=== PATIENT | female | born 1945 | race Caucasian/White ===

== ENCOUNTER → 2018-01-04 | Outpatient (CLI) | payer BC ==
[~2018-01-04] MED LIST: ACET-24 PO; ASPI-461 PO; IBUP-1050 PO; LEVO200T6 PO; REGADENOSON 0.4 MG/5 ML SYR ONE; ULT50X PO; VITAMIN D PO
--- NOTE | 2018-01-04 13:48 | MYOCARDIAL PERFUSION SCAN ---
ONE-DAY NUCLEAR MEDICINE TECHNETIUM-99M CARDIOLITE MYOCARDIAL PERFUSION SCAN CLINICAL HISTORY: This stress test is being performed as a preoperative evaluation. The patient has a known left bundle-branch block. COMPARISON: None. TECHNIQUE: For the stress portion of the study, 31.3 mCi of Technetium 99 m Cardiolite IV was injected at 09:25 am on 01/04/2018. Thirty minutes following the injection, imaging of the heart was performed in multiple projection. For the rest portion of the study, 9.91 mCi of Technetium 99 m Cardiolite was injected IV at 07:30 am. One hour following the injection, imaging of the heart was performed in the same projections. For the stress portion of the study, 0.4 mg of Lexiscan was injected intravenously as per protocol. The patient did not experience chest discomfort. Baseline EKG noted sinus rhythm with a complete left bundle-branch block. There are no ST segment changes seen over the baseline abnormality with the infusion. Following the study, patient was hemodynamically stable without complaints. FINDINGS: The short axis, vertical long axis, horizontal long axis images were reviewed in detail. There is a small fixed defect involving the apex at both stress and rest. However, the rotating and gated images suggest that this represents breast attenuation rather than prior infarction. There is no evidence of stress-induced myocardial ischemia. Left ventricle demonstrates normal systolic function without wall motion abnormalities. An estimated left ventricular ejection fraction is 58%. CONCLUSIONS: 1. No definite scintigraphic evidence of a prior myocardial infarction or stress induced myocardial ischemia. 2. No Lexiscan induced chest pain. 3. No Lexiscan induced EKG changes over the baseline abnormality. 4. Normal left ventricular ejection fraction of 58% without wall motion abnormalities.
== END | disposition home or self-care (01) ==
LOC: C.NUCL 07:01
PROVIDERS: ATTEND Physician Assistant
DX: I44.7 Left bundle-branch block, unspecified (principal); Z01.810 Encounter for preprocedural cardiovascular examination

== ENCOUNTER 2018-01-08 06:26 | Inpatient (IN) | payer BC, OTHER ==
[2017-12-13 13:07] VITALS: BMI 35.0
--- NOTE | 2017-12-24 14:43 | PAT Medication Instructions ---
Service Date Dec 24, 2017. Current Home Medication List Ibuprofen (Advil), 600 MG PO PRN Levothyroxine Sodium (Levothyroxine Sodium), 1 TAB PO QAM [Vitamin D], 400 UNITS PO QAM Medication Instructions For Your Scheduled Surgery -Check with your surgeon: Ibuprofen (Advil), 600 MG PO PRN - Hold the following medications the morning of surgery: [Vitamin D], 400 UNITS PO QAM - Take the following medications the morning of surgery with a sip of water: Levothyroxine Sodium (Levothyroxine Sodium), 1 TAB PO QAM If you have any questions please call us at [phone] or [phone] or [phone]
--- NOTE | 2018-01-04 19:45 | HISTORY & PHYSICAL EXAMINATION ---
DATE OF ADMISSION: 01/08/2018 CHIEF COMPLAINT: Left knee pain. HISTORY OF PRESENT ILLNESS: A 72-year-old female referred by my partner, Dr. Mai for surgical treatment of her left knee. She has a several year history of bilateral knee pain and discomfort, left side greater than the right. She has been treated with injections, which provide about two weeks of relief and that is about it. Pain has become more debilitating. It is mostly on the medial side, but some global pain. The more she walks, the more it hurts. She would like to have her left knee replaced. PAST MEDICAL HISTORY: Hypothyroidism. PAST SURGICAL HISTORY: Hernia surgery. ALLERGIES: None. CURRENT MEDICATIONS: Synthroid. SOCIAL HISTORY: This is a 72-year-old female. She is single, but has a lot of family help around. She does not smoke. She is . No tobacco use. No alcohol use. FAMILY HISTORY: Noncontributory. REVIEW OF SYSTEMS: Negative for diabetes, neurologic problems, vascular problems or bleeding disorders. Denies any chest pain. No shortness of breath. No history of DVT or PE. PHYSICAL EXAMINATION: GENERAL: Reveals a healthy, pleasant elderly female. Looks to be in good health. HEENT: Benign. NECK: Supple. No lymphadenopathy. LUNGS: Clear to auscultation. HEART: Regular rate and rhythm. ABDOMEN: Soft, nontender, nondistended. EXTREMITIES: Grossly neurovascularly intact except as follows: Examination of the left knee reveals the patient ambulates independently. She has got slight varus alignment to her knee. She has got bony hypertrophy medially. She is tender over the medial joint line. Range of motion is 5-125. There is no instability. She is neurovascularly intact. X-RAYS: X-ray of left knee reviewed. Shows advanced left knee DJD. She has complete loss of her medial joint space. She has little bit tibial femoral subluxation. She has got osteophytes in the lateral compartment as well. ASSESSMENT: A 72-year-old white female with advanced left knee degenerative joint disease unresponsive to conservative treatment. She would like to have her left knee replaced. PLAN: We will take her to the operating room and do a left total knee replacement. The risks and benefits of this procedure were explained to the patient including but not limited to DVT, PE, , infection, neurological injury, vascular injury, bleeding problem, pain, limited range of motion, stiffness, failure to relieve symptoms, incomplete relief of symptoms, need for further surgery in future, fracture, leg length inequality, nerve palsy, etc. The patient understands and desires to proceed. Informed consent was obtained. She is hoping to be discharged to home and do outpatient therapy. She apparently has a lot of family around to help her. She does not want home health. She knows to hold her Mobic 10 days preop.
[~2018-01-08] VITALS: Ht 170.2 cm; Wt 122.0 kg
[2018-01-08] VITALS (9 sets, daily range): BP systolic 120–188; BP diastolic 68–88; PULSE 62–83; TEMP 36.4–36.9; O2SAT 94–100; Ht 170.2 cm; Wt 122.0 kg
[~2018-01-08 06:26] MED LIST changes: -ACET-24 PO; +ACETAMINOPHEN 500 MG TAB PO SCH; -ASPI-461 PO; +BUPIVACAINE LIPOSOME 266 MG, BUPIVACAINE/EPINEPHRINE INJ 50 ML, SODIUM CHLORIDE 0.9% PF... INFIL SCH; +CEFAZOLIN 2000MG IV PUSH 15 ML IV SCH; +FAMOTIDINE 20 MG TAB PO SCH; +GABAPENTIN 300 MG CAP PO SCH; +LACTATED RINGER'S 1000ML 1,000 ML IV SCH; +LACTATED RINGER'S 1000ML 500 ML IV SCH; +LACTATED RINGER'S 1000ML IV SCH; +METOCLOPRAMIDE HCL 10 MG TAB PO SCH; +PNEUMOCOCCAL ADMINISTRATION CHARGE ONE; +PNEUMOCOCCAL POLYSACCHARIDES 25 MCG/0.5 ML VIAL/SYR IM. ONE; -REGADENOSON 0.4 MG/5 ML SYR ONE; -ULT50X PO
--- NOTE | 2018-01-08 06:54 | History & Physical Bridge Note ---
H&P Re-Evaluation Bridge Note: I have examined the patient, reviewed the History & Physical and in the interval since the performance of the History & Physical I have noted the following changes of clinical significance: No changes noted
[2018-01-08] MEDS ORDERED: EpINEphrine INJ 1MG/ML AMP 1 MG/ML AMP ONE (07:23)
[2018-01-08] MEDS ORDERED: BUPIVACAINE 0.5 % 5 MG/1 ML PF 10ML VIAL ONE (07:23)
[2018-01-08] MEDS ORDERED: ROPIVACAINE 0.5% 5 MG/ML 30 ML VIAL ONE (07:23)
[2018-01-08] MEDS ORDERED: FENTANYL CITRATE INJ 50 MCG/1 ML 2 ML VIAL ONE (07:46)
[2018-01-08] MEDS ORDERED: MIDAZOLAM HCL 1 MG/ML 2ML VIAL ONE (07:47)
[2018-01-08] MEDS ORDERED: CEFAZOLIN SOD 1000MG/7.5 ML IV PUSH ONE (07:53)
[2018-01-08] MEDS ORDERED: ATROPINE SULFATE 0.1 MG/ML 5ML SYR IV PRN (08:00)
[2018-01-08] MEDS ORDERED: HYDROmorphone INJ 0.5 MG/0.5 ML SYR IV PRN (08:00)
[2018-01-08] MEDS ORDERED: ONDANSETRON INJ 2 MG/ML 2 ML VIAL IV PRN ×2 (08:00→11:45)
[2018-01-08] MEDS ORDERED: EpHEDrine SULFATE INJ 50 MG/ML AMP IV PRN (08:00)
[2018-01-08] MEDS ORDERED: FENTANYL CITRATE INJ 50 MCG/1 ML 2 ML VIAL IV PRN (08:00)
[2018-01-08] MEDS ORDERED: NURSING VERBAL MED ORDER STA (09:45)
[2018-01-08] MEDS ORDERED: TRANEXAMIC ACID INJ 1,000 MG in SODIUM CHLORIDE 0.9% 100ML 100 ML IV SCH ×2 (10:00→18:00)
[2018-01-08] MEDS ORDERED: LIDOCAINE 2% 20 MG/ML 5ML SYR ONE ×2 (10:19→10:20)
[2018-01-08] MEDS ORDERED: PROPOFOL IV EMULSION 10 MG/ML 20 ML VIAL ONE ×2 (10:19→10:34)
[2018-01-08] MEDS ORDERED: LIDOCAINE HCL 2% 2 ML VIAL (20MG/ML) ONE (10:20)
[2018-01-08] MEDS ORDERED: BACITRACIN 50000 UNIT VIAL IR ONE (10:40)
--- NOTE | 2018-01-08 11:31 | [facility] Post Operative Brief Note ---
Immediate Operative Summary Operative Date Jan 08, 2018. Pre-Operative Diagnosis Advanced left knee degenerative joint disease Post-Operative Diagnosis Advanced left knee degenerative joint disease Procedure(s) Performed Left total knee arthroplasty, cemented Surgeon Dr. Mahmood Computing Machine Operator Surgeon(s) Eldon Herrera PA-C Estimated Blood Loss 50cc Findings Consistent with Post-Op Diagnosis Fluids (cc crystalloids) 2000 cc Specimens A: Left knee bone and tissue Drains None Anesthesia Type MAC Spinal Regional Complication(s) none Disposition Accompanied Pt To Recover: yes Disposition: Recovery Room / PACU Overlapping Procedure I was present for: the critical portions of procedure. I was immediately available: during the entire case
[2018-01-08] MEDS ORDERED: METOCLOPRAMIDE HCL INJ 5 MG/ML 2 ML VIAL IV PRN (11:45)
[2018-01-08] MEDS ORDERED: MAGNESIUM HYDROXIDE SUSP 30 ML UDC PO PRN (11:45)
[2018-01-08] MEDS ORDERED: BISACODYL 10 MG SUPP PR PRN (11:45)
[2018-01-08] MEDS ORDERED: SILVER SULFADIAZINE 1% CR 50 GM JAR EXT PRN (11:45)
[2018-01-08] MEDS ORDERED: ALUMINUM/MAGNESIUM/SIMETH (MAALOX MAX) 30 ML UDC PO PRN (11:45)
[2018-01-08] MEDS ORDERED: ZOLPIDEM TARTRATE 5 MG TAB PO PRN (11:45)
--- NOTE | 2018-01-08 11:55 | Anesthesiology Progress Note ---
Anesthesia Post Op Note Date & Time Jan 08, 2018 at 11:55 Vital Signs Pain Intensity: 0 Vital Signs Past 12 Hours Date Time Temp Pulse Resp B/P (MAP) Pulse Ox O2 Delivery O2 Flow Rate FiO2 01/08/18 11:40 80 17 138/63 95 Nasal Cannula 2 01/08/18 11:34 36.4 84 16 129/59 96 Nasal Cannula 2 01/08/18 07:08 36.6 83 18 188/88 96 Room Air Notes Mental Status: alert / awake / arousable, participated in evaluation Pt Amnestic to Procedure: Yes Nausea / Vomiting: adequately controlled Pain: adequately controlled Airway Patency, RR, SpO2: stable & adequate BP & HR: stable & adequate Hydration State: stable & adequate Neuraxial Anesthesia: was administered, sensory block is resolving Anesthetic Complications: no major complications apparent
--- NOTE | 2018-01-08 11:57 | DIAGNOSTIC IMAGING REPORT ---
L KNEE 2 VIEWS ROUTINE CLINICAL HISTORY: Postop examination DEGENERATIVE ARTHRITIS COMPARISON: None. DISCUSSION: There are postsurgical changes of a total left knee arthroplasty and patellar resurfacing. The femoral and tibial components appear well seated. There is air within the soft tissues consistent with recent surgery. There are overlying skin fredy. IMPRESSION: Postsurgical changes of a total left knee arthroplasty. Electronically signed by: Cliff Perez M.D. 01/08/2018 11:55 AM Dictated Date/Time: 01/08/2018 11:55 AM
[2018-01-08] MEDS: D5W AND 1/2NSS + 20MEQ KCL 1,000 ML IV SCH ×2 (13:00→17:55)
[2018-01-08] MEDS: HYDROmorphone INJ 0.5 MG/0.5 ML SYR IV PRN ×2 (13:30→14:28)
[2018-01-08] MEDS: ACETAMINOPHEN 500 MG TAB PO SCH ×2 (14:25→21:02)
[2018-01-08] MEDS: TRAMADOL HCL 50 MG TAB PO PRN ×2 (16:05→21:03)
[2018-01-08] MEDS: CEFAZOLIN IV 2,000 MG in SYRINGE 0 ML IV SCH (18:12)
[2018-01-08] MEDS: FERROUS GLUCONATE 324 MG TAB PO SCH (18:12)
[2018-01-08] MEDS: KETOROLAC TROMETHAMINE 15 MG/ML VIAL IV. SCH ×2 (18:13→23:59)
--- NOTE | 2018-01-08 18:47 | PROGRESS NOTE ---
DATE: 01/08/2018 SUBJECTIVE: A 72-year-old white female postop from a left knee replacement. She is doing well. Really not having much pain at all yet. No chest pain or shortness of breath. Not feeling dizzy or lightheaded. OBJECTIVE: VITAL SIGNS: Temperature 36.4. Vital signs stable. GENERAL: Physical examination reveals a pleasant elderly female. She is sitting up in bed and talking to a friend. She looks comfortable. LUNGS: Clear to auscultation. HEART: Regular rate and rhythm. ABDOMEN: Soft, nontender, nondistended. EXTREMITIES: Grossly neurovascularly intact except as follows: Examination of the left lower extremity reveals the leg to be well aligned. Dressing is clean, dry and intact. She can dorsiflex and plantarflex her foot appropriately. She is neurologically intact. X-RAYS: X-rays of the left knee from recovery room were reviewed. Shows a cemented posterior stabilized total knee arthroplasty. Components looked to be in good position. No signs of problems. ASSESSMENT: A 72-year-old white female postoperative from a left knee replacement, doing well. Pain is controlled. She is neurologically intact. PLAN: 1. DVT prophylaxis including thigh-high TEDs, SCDs, and aspirin twice a day. 2. PT and OT. Weight bear as tolerated. Left total knee protocol. 3. Pain control, doing well with current pain regimen. 4. IV antibiotics x 24 hours. 5. Disposition: Plan to discharge to home likely with some home health once adequately recovered and medically stable.
[2018-01-08] MEDS: ASPIRIN 81 MG ECTAB PO SCH (21:02)
[2018-01-08] MEDS: SENNA 8.6 MG TAB PO SCH (21:02)
[2018-01-08] MEDS: DOCUSATE SODIUM 100 MG CAP PO SCH (21:02)
--- NOTE | 2018-01-08 23:03 | OPERATIVE REPORT ---
DATE OF OPERATION: 01/08/2018 SURGEON: Erik Mahmood MD RAILROAD INSPECTOR: Eldon Herrera PA-C PREOPERATIVE DIAGNOSIS: Left knee degenerative joint disease. POSTOPERATIVE DIAGNOSIS: Left knee degenerative joint disease. PROCEDURE PERFORMED: Left cemented posterior stabilized total knee arthroplasty. COMPLICATIONS: None. ESTIMATED BLOOD LOSS: 50 mL. FLUID REPLACEMENT: 2000 mL crystalloid fluid replacement. TOURNIQUET TIME: 65 minutes at 350 mmHg. ANESTHESIA: Spinal with adductor canal block. DRAINS: None. SPECIMENS: Left knee sent for pathology. OPERATIVE INDICATIONS: The patient is a 72-year-old female referred by my partner Dr. Mai for surgical treatment of her knee. She had a long history of knee problems, has gotten significantly worse. She became less responsive to conservative care. X-rays show advanced DJD. She elected to proceed with left total knee arthroplasty. OPERATIVE FINDINGS: Operative findings revealed advanced left knee DJD. She had extensive grade 4 changes of the medial femoral condyle and medial tibial plateau. She had some spotty grade 4 changes in the lateral compartment and more extensive grade 4 changes in the patellofemoral compartment. She had a varus deformity to her knee and moderate size knee effusion. OPERATIVE IMPLANTS: Operative implants consisted of: 1. Biomet Vanguard size 67.5 left posterior bifemoral component. 2. Biomet size 71 tibial tray. 3. A 10 mm posterior stabilized polyethylene insert. 4. A 34 x 8.5 all poly patella. OPERATIVE PROCEDURE: The patient was taken to the operating room, identified, and placed on the operating table in supine position. All contact areas were appropriately padded. IV antibiotics were provided by anesthesia team. A spinal anesthetic and adductor canal block had been provided in the holding area. Jackson catheter was placed in sterile fashion. A left thigh tourniquet was then placed and the left lower extremity was then prepped and draped in usual sterile fashion. The left leg was elevated and exsanguinated with Esmarch and tourniquet was placed at 350 mmHg. An anterior approach to the left knee was then performed through a longitudinal incision centered over the patella. Sharp dissection was carried through the subcutaneous tissue down to the level of the extensor mechanism. A medial parapatellar arthrotomy incision was made. Some subperiosteal dissection was carried out medially. The fat pad resected from beneath the patellar tendon. Lateral patellofemoral ligament was released. Patella was everted and the knee was flexed. The osteophytes were taken off the distal femur. The ACL and PCL were then released from the distal femur and the tibia subluxated anteriorly. The external tibial alignment jig was then placed in the anterior face of the tibia and adjusted 14 mm medially. Proximal tibial cut was made to remove about 2 mm of bone from the most deficient aspect of the medial tibial plateau. The tibia sized to a size 71. Some osteophytes were taken off medial and posteromedially. Attention was then drawn to the femur. The distal femur was entered with a sharp drill bit. Intramedullary canal was suctioned. A left 5 degree valgus cutting guide was placed and distal femoral cutting block was pinned in place. Distal femoral cut was made to take an additional 3 mm of bone off distal femur. The femur was then sized to a size 67.5. We did downsize this slightly. The AP cutting block was pinned parallel to the epicondylar axis, which was 5 degrees of external rotation. The anterior cut, anterior chamfer, posterior cut, posterior chamfer cuts were made. Box cutting guide was placed and adjusted slight lateral and the box cut was made. The knee was flexed. The remnants of the medial and lateral menisci were excised. The osteophytes were taken off the posterior aspect of the femur. Trial femoral component was placed. Tibial tray was pinned in maximum external rotation and a drill and stem punch were used to create defect in the proximal tibia for the tibial tray. The knee was then trialed and a 10 mm insert fit most appropriately. Attention was then drawn to the patella. The patella was cleaned of all soft tissues. Patella thickness measured 25 mm in thickness and was cut down to 15. It was sized to a size 34 patella. Lug holes were drilled for 34 patella. Lateral osteophyte was removed. Patella button was placed. Knee was taken through range of motion and patella tracked nicely with no thumbs test. Attention was then drawn toward placement of permanent components. All trial components were removed. A bone plug was placed in the distal femur to limit blood loss. A double batch of Palacos G cement was mixed. A Biomet Vanguard size 67.5 left posterior stabilized femoral component, size 71 tibial tray, a 10 mm posterior stabilized polyethylene insert, and a 34 x 8.5 all poly patella then cemented in place. Knee was brought into full extension until cement hardened. A final cement check was then performed. Pericapsular tissues were injected with a total of 100 mL of a combination of 20 mL of Exparel, 30 mL of normal saline, 50 mL of 0.25% Marcaine with epinephrine. The patient did receive 1 g of tranexamic acid. The tourniquet was then let down for a final tourniquet time of 65 minutes. Hemostasis was assured with use of electrocautery. Extensor mechanism was then closed with a combination of #1 PDS suture and #1 Vicryl suture in a [id number] fashion. Extensor mechanism was checked and found to be intact. The subcutaneous tissue then closed with 2-0 Dexon suture in a buried interrupted fashion. Skin was closed skin fredy. Leg was then cleaned, dried and a sterile dressing of Xeroform, 4 x 4's, sterile cast padding and Armaan bandage were applied. The patient then transferred to the recovery room in stable condition. The patient tolerated the procedure well with no complication. All needle and sponge counts were correct at the end of the operation. I attest to the content of the Intraoperative Record and any orders documented therein. Any exception s are noted below.
[2018-01-09] MEDS: CEFAZOLIN IV 2,000 MG in SYRINGE 0 ML IV SCH (02:13)
[2018-01-09 03:30] VITALS: BP 105/66; PULSE 68; TEMP 36.8; O2SAT 96
[2018-01-09] MEDS: LEVOTHYROXINE 200 MCG TAB PO SCH (05:52)
[2018-01-09] MEDS: ACETAMINOPHEN 500 MG TAB PO SCH ×3 (05:52→21:34)
[2018-01-09] MEDS: KETOROLAC TROMETHAMINE 15 MG/ML VIAL IV. SCH ×3 (05:53→17:40)
[2018-01-09 06:30] LABS: HEMATOCRIT 35.6 % (37-47); HEMOGLOBIN 11.1 g/dL (12.0-16.0); MEAN CELL VOLUME 93.9 fL (80-100); MEAN CORPUSCULAR HEMOGLOBIN 29.3 pg (25-34); MEAN CORPUSCULAR HGB CONC 31.2 g/dl (32-36); MEAN PLATELET VOLUME 9.7 fL (7.4-10.4); PLATELET COUNT 223 K/uL (130-400); RED CELL DISTRIBUTION WIDTH CV 13.5 % (11.5-14.5); RED CELL DISTRIBUTION WIDTH SD 46.6 fL (36.4-46.3); WHITE BLOOD COUNT 7.13 K/uL (4.8-10.8)
[2018-01-09 07:04] LABS: CALCIUM 7.7 mg/dl (8.5-10.1); CREATININE 0.58 mg/dl (0.60-1.20); POTASSIUM 4.2 mmol/L (3.5-5.1)
[2018-01-09] MEDS: TRAMADOL HCL 50 MG TAB PO PRN ×2 (07:23→12:08)
[2018-01-09 07:36] VITALS: BP 126/67; PULSE 78; TEMP 37.1; O2SAT 93
[2018-01-09] MEDS: D5W AND 1/2NSS + 20MEQ KCL 1,000 ML IV SCH ×2 (07:42)
[2018-01-09] MEDS: ASPIRIN 81 MG ECTAB PO SCH ×2 (08:54→21:34)
[2018-01-09] MEDS: DOCUSATE SODIUM 100 MG CAP PO SCH ×2 (08:54→21:33)
[2018-01-09] MEDS: FERROUS GLUCONATE 324 MG TAB PO SCH ×3 (08:54→17:40)
[2018-01-09] MEDS: CHOLECALCIFEROL 400 INTER.UNIT TAB PO SCH (08:55)
[2018-01-09] MEDS: PANTOprazole SOD 40 MG TAB PO SCH (08:55)
[2018-01-09] MEDS: MULTIVITAMIN TAB PO SCH (08:55)
[2018-01-09 09:45] VITALS: BP 130/63
[2018-01-09 10:48] VITALS: BP 124/71; PULSE 78; TEMP 36.8; O2SAT 93
[2018-01-09] MEDS ORDERED: ACET-24 PO (14:02)
[2018-01-09] MEDS ORDERED: ULT50X PO (14:02)
[2018-01-09] MEDS ORDERED: ASPI-461 PO (14:02)
--- NOTE | 2018-01-09 14:07 | PROGRESS NOTE ---
DATE: 01/09/2018 SUBJECTIVE: A 72-year-old white female postop day 1 from a left knee replacement. She is doing pretty well. Pain is controlled. Denies any chest pain or shortness of breath. Not feeling dizzy or lightheaded. OBJECTIVE: VITAL SIGNS: Temperature 36.8. Vital signs stable. GENERAL: Physical examination reveals a pleasant elderly female. She is sitting up at her bedside chair, looks pretty comfortable. EXTREMITIES: Examination of the left leg reveals the dressing to be clean, dry and intact. She can dorsiflex and plantarflex her foot appropriately. She is neurologically intact. LABORATORY DATA: Hemoglobin 11.1. Hematocrit 35.6. Electrolytes are stable. ASSESSMENT: A 72-year-old white female postop day 1 from left knee replacement, doing pretty well. Pain is controlled. PLAN: 1. DVT prophylaxis including thigh-high TEDs, SCDs, and aspirin twice a day. 2. PT/OT. Weight bear as tolerated. Left total knee protocol. 3. Pain control, doing pretty well with current pain regimen. 4. Disposition: She is hoping to be discharged to home with some home health once adequately recovered.
[2018-01-09 15:05] VITALS: BP 120/70; PULSE 69; TEMP 36.7; O2SAT 94
--- NOTE | 2018-01-09 21:04 | Discharge Instructions ---
Discharge Instructions Date of Service Jan 09, 2018. Admission Reason for Admission: Left Knee Degenerative Joint Disease Discharge Discharge Diagnosis / Problem: Left Knee Replacement Discharge Goals Goal(s): Decrease discomfort, Improve function, Increase independence, Improve disease control, Therapeutic intervention Activity Recommendations Activity Limitations: per Instructions/Follow-up section Weightbearing Status: Left weightbearing . Instructions / Follow-Up Instructions / Follow-Up ACTIVITY RECOMMENDATIONS: Physical Therapy: * You will go to physical therapy three times each week for four to six weeks after your surgery in order to regain your knee range of motion and to retrain your knee to work properly. * It is just as important to make sure you are getting your knee perfectly straight as it is to regain your knee bend. * Taking a pain pill an hour before therapy can help you have a more productive and comfortable therapy session. Home Exercise: * You were shown a series of exercises (heel props, heel slides, etc.) in the hospital. Do these exercises three to four times each day including the exercises you were shown in physical therapy. Walking: * Get up and walk several times each day. For the first four weeks, try not to stand or walk for more than one hour at a time. If you do stand or walk for more than one hour, you will not hurt anything, but your knee and leg will likely swell. * As you feel comfortable, you may change from the walker or crutches to a cane and then to independent walking. MEDICATIONS: New Medicine: * You will likely be taking one or more of these medications: 1. Tramadol - A quick and shorter-acting pain medication. Take one to two tablets every four to six hours to lessen your pain. 2. Aspirin - Thins your blood to lessen the chance of forming a blood clot. * The most common side effects of pain medicine and iron are nausea and constipation. If nausea or constipation is too much of a problem or if you have any questions about your new medicines or doses, call [facility] at . We will try to help you manage these issues. VERY IMPORTANT TO READ AND REVIEW" Pain: * The immediate post-operative period after knee replacement surgery is often quite painful. * You are given a prescription for pain medicine. You should take it, as directed, when you need it, especially before physical therapy and before going to bed. Pain that interferes with sleep is very common and can last several months. * You will likely need pain medicine for the first four to six weeks. It will not stop all of the pain. The pain will lessen and as you feel better, you may change to milder pain medicine such as Tylenol. * The most common side effects of pain medicine are nausea and constipation, so don't take more than you need. SPECIAL CARE INSTRUCTIONS: TEDs/Elastic Stockings: * The white elastic stockings help limit swelling and prevent blood clots from forming in your legs. The more you wear them, the more they work. * Wear them for six weeks after knee replacement surgery and four weeks after partial knee replacement. Prevention of Infection: * Take antibiotics one hour before any dental cleaning, dental work, urological procedure, gastrointestinal procedure or any invasive surgery in order to prevent your new joint from getting infected. * You may get the antibiotics from the doctor performing the procedure or you may call our office at before and we will call in a prescription to the pharmacy of your choice. Things to Watch For: * Drainage from the incision site that occurs more than one week after your surgery. * Severely increased knee/leg pain or swelling. * Increased redness at the incision site. * Fever above 102 degrees Fahrenheit. * Unusual chest pain or shortness of breath. * Unusual pain or burning with urination. Call [facility] at with any of the above problems or if you have any questions about your medicines or recovery. FOLLOW UP VISIT: Make an appointment to see your doctor for approximately two weeks after surgery for a progress check and staple removal by calling the office at . Current Hospital Diet Patient's current hospital diet: Regular Diet Discharge Diet Recommended Diet: Regular Diet Procedures Procedures Performed: Left total knee arthroplasty, cemented Pending Studies Studies pending at discharge: no Medical Emergencies . Who to Call and When: Medical Emergencies: If at any time you feel your situation is an emergency, please call [phone] immediately. . Non-Emergent Contact Non-Emergency issues call your: Surgeon . "Provider Documentation" section prepared by Erik Mahmood. .
[2018-01-09] MEDS: SENNA 8.6 MG TAB PO SCH (21:34)
[2018-01-09 23:08] VITALS: BP 124/71; PULSE 80; TEMP 37.2; O2SAT 92
[2018-01-10] MEDS: KETOROLAC TROMETHAMINE 15 MG/ML VIAL IV. SCH ×2 (00:25→06:01)
[2018-01-10] MEDS: LEVOTHYROXINE 200 MCG TAB PO SCH (06:00)
[2018-01-10] MEDS: ACETAMINOPHEN 500 MG TAB PO SCH (06:00)
[2018-01-10 07:12] VITALS: BP 127/71; PULSE 72; TEMP 37.6; O2SAT 92
--- NOTE | 2018-01-10 07:49 | PROGRESS NOTE ---
DATE: 01/10/2018 SUBJECTIVE: A 72-year-old white female postop day 2 from a left knee replacement. She is doing pretty well. Pain is controlled. No chest pain. No shortness of breath. Not feeling dizzy or lightheaded. OBJECTIVE: VITAL SIGNS: Temperature 37.6. Vital signs stable. PHYSICAL EXAMINATION: GENERAL: Physical examination reveals a pleasant elderly female. She is sitting up in bed, looks comfortable. EXTREMITIES: Examination of the left leg reveals incision to be clean, dry and intact. Leg is well aligned. Calf is soft and supple. She is neurologically intact. ASSESSMENT: A 72-year-old white female postoperative day 2 from left knee replacement, doing pretty well. Pain is controlled. She is neurologically intact. PLAN: 1. DVT prophylaxis including thigh-high TEDs, SCDs, and aspirin twice a day. 2. PT/OT. Weight bear as tolerated. Left total knee protocol. 3. Pain control, doing well with current pain regimen. 4. Disposition: Plan to discharge to home with some home health later today.
[2018-01-10] MEDS: CHOLECALCIFEROL 400 INTER.UNIT TAB PO SCH (08:25)
[2018-01-10] MEDS: PANTOprazole SOD 40 MG TAB PO SCH (08:26)
[2018-01-10] MEDS: FERROUS GLUCONATE 324 MG TAB PO SCH (08:26)
[2018-01-10] MEDS: MULTIVITAMIN TAB PO SCH (08:26)
[2018-01-10] MEDS: DOCUSATE SODIUM 100 MG CAP PO SCH (08:28)
[2018-01-10] MEDS: ASPIRIN 81 MG ECTAB PO SCH (08:28)
[2018-01-10 09:24] VITALS: BP 127/71; PULSE 72; TEMP 37.6; O2SAT 92
[2018-01-10] MEDS: TRAMADOL HCL 50 MG TAB PO PRN (11:47)
== END 2018-01-10 12:15 | disposition home health service (06) | DRG 470 ==
LOC: C.ACU 06:26 → ENRESERV 11:51 → C.3E 12:16
PROVIDERS: ADMIT Orthopaedic Surgery Sports Medicine; ATTEND Orthopaedic Surgery Sports Medicine
PROC: 0SRU0J9 Replacement of Left Knee Joint, Femoral Surface with Synthetic Substitute, Cemented, Open Approach (ICD-10-PCS; principal; 2018-01-08 09:00)
DX: M17.12 Unilateral primary osteoarthritis, left knee (principal); E03.9 Hypothyroidism, unspecified

== ENCOUNTER 2024-11-24 17:23 | Observation (INO) ==
--- NOTE | 2024-11-24 17:40 | Emergency Department Note ---
History of Present Illness General Chief complaint: Leg Injury/Pain Stated complaint: INFECTION RT LEG Time Seen by Provider: 11/24/24 17:39 History of Present Illness This is a 79-year-old female who presents to the emergency department via private vehicle with complaints of "infection, right leg". The patient notes ongoing symptoms over the past week despite oral antibiotics. Patient notes that she was seen by PCP about a week ago for right lower extremity erythema and edema and was placed on oral cephalexin. She has been compliant with this medication. She had a recheck today. Noting ongoing symptoms, was referred here for further evaluation and management. Patient denies any fevers, chills, nausea or vomiting. No calf pain. No history of DVT. Home Medications Medication Instructions Recorded Confirmed Type LEVOTHYROXINE SODIUM 1 tab PO QAM 90 days #90 tabs 02/09/15 History Ibuprofen (Advil) 600 mg PO PRN #0 tabs 12/13/17 History VITAMIN D 400 unit PO QAM ##0 12/13/17 History ACETAMINOPHEN (SB NON-ASPIRIN 1,000 mg PO Q8H 30 days #180 tabs 01/09/18 Rx EXTRA STRE) ASPIRIN 81 mg PO BID 45 days #90 tabs 01/09/18 Rx Tramadol HCl 50 - 100 mg PO Q6H PRN Pain 15 01/09/18 Rx days #40 tabs oxycodone 5 mg tablet 5 mg PO Q6H PRN pain #10 tabs 09/17/22 Rx diazepam 5 mg tablet 5 mg PO USEASDIRECTD #2 tabs 09/22/22 Rx Wheeled Walker #1 ea 01/24/24 01/24/24 Rx Allergies Allergy/AdvReac Type Severity Reaction Status Date / Time No Known Allergies Allergy Mild Unverified 01/08/18 07:02 Past Med/Surg History Problem List (Updated 11/24/24 @ 20:09 by Vaughn Negro PA-C) Cellulitis of right anterior lower leg (Acute) Left knee pain Avascular necrosis of bone of right hip Bilateral lower extremity edema Osteoarthritis History of total left knee replacement Right hip pain Right knee DJD Medical History Bilateral lower extremity edema Osteoarthritis Surgical History History of total left knee replacement Social History Smoking Status: Never smoker Preferred Language: Upper Sorbian marital status: / Current Living Situation: Alone current occupational status: retired Feels Safe at Home: Yes Review of Systems A total of 10 systems reviewed and were otherwise negative Physical Exam Vital Signs Vital Signs - 24 hr 11/24/24 17:23 11/24/24 19:23 Temperature 36.6 C Temperature Source Temporal Artery Scan Pulse Rate 71 Pulse Rate [Right Finger] 54 L Respiratory Rate 18 20 Respiratory Effort / Characteristics Non-Labored Spontaneous Respiratory Depth Normal Blood Pressure 180/70 H Blood Pressure [Right Arm] 176/81 H Blood Pressure Mean 106 Blood Pressure Mean [Right Arm] 112 Pulse Oximetry 93 94 Oxygen Delivery Method Room Air Sepsis Recent Fever Within 48 Hours No Sepsis New/Unexplained Change in Mental Status N/A Sepsis Action Taken by Nursing No Action Required VITAL SIGNS - Vital signs and nursing notes were reviewed. Stable and afebrile. GENERAL - 79-year-old female appearing female stated age who is in no acute distress. Communicates well with provider and answers questions appropriately. SKIN -there is a large area of erythema to the right lower extremity with an ulcer in the inferior aspect. A small amount of serosanguineous drainage which was sent for culture. No crepitus or fluctuance. HEAD - NC/AT. NECK - Neck with FROM. No nuchal rigidity. LUNGS -CTA CARDIAC - RRR EXTREMITIES - No clubbing or peripheral cyanosis. Skin as above. No bony tenderness. Patient is able to stand, axial load. +5/5 strength noted in UE/LE bilaterally. NEUROLOGIC -sensory intact throughout the right lower extremity without deficit. Right dorsalis pedis pulse within normal limits. PSYCH -alert, oriented and pleasant on exam Course Administered Medications Discontinued Medications Cefepime HCl (Maxipime 2000mg) 2,000 mg in 20 mls @ 5 mls/min IV NOW STA; Protocol Stop: 11/24/24 17:57 Last Admin: 11/24/24 18:32 Dose: 5 mls/min Documented By: CAP Daptomycin 500 mg/ Syringe 10 mls @ 5 mls/min IV NOW ONE; Protocol Stop: 11/24/24 19:39 Last Admin: 11/24/24 19:41 Dose: 5 mls/min Documented By: CTK Medical Decision Making Laboratory Data 11/24/24 18:30 11/24/24 18:30 Lab Results 11/24/24 Range/Units 18:30 WBC 5.90 (4.8-10.8) K/ul RBC 4.64 (4.20-5.40) M/uL Hgb 14.2 (12.0-16.0) g/dl Hct 44.2 (37.0-47.0) % MCV 95.3 (80.0-100.0) fL MCH 30.6 (25.0-34.0) pg MCHC 32.1 (32.0-36.0) g/dL RDW Std Deviation 47.5 H (36.4-46.3) fL RDW Coeff of Tram 13.5 (11.5-14.5) % Plt Count 261 (130-400) K/uL MPV 9.9 (9.4-12.4) fL Immature Gran % (Auto) 0.3 % Neut % (Auto) 71.5 % Lymph % (Auto) 16.8 % [place] % (Auto) 10.3 % Eos % (Auto) 0.8 % Baso % (Auto) 0.3 % Neut # (Auto) 4.21 (1.40-6.50) K/uL Lymph # (Auto) 0.99 L (1.20-3.40) K/uL [place] # (Auto) 0.61 H (0.11-0.59) K/uL Eos # (Auto) 0.05 (0.00-0.50) K/uL Baso # (Auto) 0.02 (0.00-0.20) K/uL Immature Gran # (Auto) 0.02 (0.01-0.20) K/uL Sodium 138 (136-145) mmol/L Potassium 3.8 (3.5-5.1) mmol/L Chloride 96 L (98-107) mmol/L Carbon Dioxide 36 H (21-32) mmol/L Anion Gap 6 (3-11) BUN 21 (6-23) mg/dl Creatinine 0.61 (0.6-1.2) mg/dl Est Cr Clr Drug Dosing 101.8 ml/min eGFR 90.89 BUN/Creatinine Ratio 34.4 H (10-20) Glucose 112 H (70-99(Fasting)) mg/dl Calcium 10.1 (8.6-10.3) mg/dl Total Bilirubin 0.6 (0.2-1.0) mg/dl AST 20 (13-39) U/L ALT 14 (7-52) U/L Alkaline Phosphatase 96 (34-104) U/L Total Protein 7.6 (6.0-8.3) gm/dl Albumin 4.2 (3.4-5.0) gm/dl Globulin 3.4 (2.5-4.0) gm/dl Albumin/Globulin Ratio 1.2 (0.9-2) Procalcitonin < 0.02 (0-0.5) ng/ml Nasal Screen MRSA (PCR) Negative (Negative) MDM Narrative Patient was seen and evaluated as above in room D01. Review was performed of triage nursing notes and vital signs. I did review pertinent previous visits and patient history. After obtaining a thorough history and physical examination the above work up was performed. Patient presents to us today for evaluation of worsening right lower extremity cellulitis despite outpatient oral antibiotics. Please see picture above that was obtained after obtaining verbal consent from the patient regarding the cellulitis. Options of care were discussed with the patient. IV access was established. Labs were drawn. There is no leukocytosis or concerning anemia. Mild hypochloremia at 96 with an elevated carbon dioxide at 36. Mild hyperglycemia 112. Procalcitonin undetectable making sepsis less likely. CRP pending at this time. Negative MRSA nasal screen. The right lower extremity does not have any crepitus or fluctuance. Presentation not consistent with that of necrotizing fasciitis or deep space infection. There is no evidence of compartment syndrome. Right lower extremity well-perfused. I do believe that further evaluation and management in the inpatient setting is warranted. Case discussed with the hospitalist service. Please refer to further documentation regarding her stay. I did add on IV cefepime and IV daptomycin for broad coverage of this right lower extremity cellulitis. I did call and speak with in-house pharmacist at [address] regarding daptomycin dosing. Adjusted body weight is 86 kg x 6 mg/kg and will round to 500 mg for the daptomycin. In the evaluation and treatment of this patient the following differential diagnoses were entertained: Cellulitis, abscess, necrotizing fasciitis, venous stasis, ulcer, among others. Impression & Plan Cellulitis of right anterior lower leg Discharge Plan Visit Data Chief Complaint: Leg Injury/Pain Stated Complaint: INFECTION RT LEG ED Provider: Jena Bojorquez ED Midlevel Provider: Vaughn Negro Discharge Problem: Cellulitis of right anterior lower leg Patient Disposition: Admitted As Inpatient Condition: Good Forms Stand Alone Forms: My [facility] [employer] Prescriptions Prescriptions: No Action LEVOTHYROXINE SODIUM 200 MCG tablet 1 tab PO QAM 90 Days Qty: 90 VITAMIN D 400 unit PO QAM Qty: 0 Ibuprofen (Advil) 200 MG tablet 600 mg PO PRN Qty: 0 ACETAMINOPHEN (SB NON-ASPIRIN EXTRA STRE) 500 MG tablet 1,000 mg PO Q8H 30 Days Qty: 180 0RF Rx Instructions: Take 3 times per day to lessen pain. ASPIRIN 81 MG tablet 81 mg PO BID 45 Days Qty: 90 0RF Rx Instructions: Take to prevent blood clots. Tramadol HCl 50 MG tablet 50 - 100 mg PO Q6H PRN (Reason: Pain) 15 Days Qty: 40 0RF Rx Instructions: Take as needed for Pain. diazepam 5 mg tablet 5 mg PO USEASDIRECTD Qty: 2 0RF Rx Instructions: 1 PO 30 MIN PRIOR TO PROCEDURE; 1 PO 5 MIN PRIOR TO PROCEDURE (DME) Wheeled Walker Misc See Rx Instructions .MEDSUPPLY Qty: 1 0RF Rx Instructions: As directed oxycodone 5 mg tablet 5 mg PO Q6H PRN (Reason: pain) Qty: 10 0RF Referrals Referrals: Lian Singh CRNP [Primary Care Provider] -
[2024-11-24] MEDS: CEFEPIME 2000MG 2,000 MG/20 ML SYR IV STA (18:32)
[2024-11-24 18:48] LABS: Basophils # (auto) 0.02 K/uL (0.00-0.20); Basophils % (auto) 0.3 %; Eosinophils # (auto) 0.05 K/uL (0.00-0.50); Eosinophils % (auto) 0.8 %; Hematocrit (blood only) 44.2 % (37.0-47.0); Hemoglobin 14.2 g/dl (12.0-16.0); Immature Granulocytes # (auto) 0.02 K/uL (0.01-0.20); Immature Granulocytes % (auto) 0.3 %; Lymphocytes # (auto) 0.99 K/uL (1.20-3.40); Lymphocytes % (auto) 16.8 %; Mean Corpuscular Hemoglobin 30.6 pg (25.0-34.0); Mean Corpuscular Hgb Conc 32.1 g/dL (32.0-36.0); Mean Corpuscular Volume 95.3 fL (80.0-100.0); Mean Platelet Volume 9.9 fL (9.4-12.4); Monocytes # (auto) 0.61 K/uL (0.11-0.59); Monocytes % (auto) 10.3 %; Neutrophils # (auto) 4.21 K/uL (1.40-6.50); Neutrophils % (auto) 71.5 %; Platelet Count 261 K/uL (130-400); RDW Coefficient of Variation 13.5 % (11.5-14.5); RDW Standard Deviation 47.5 fL (36.4-46.3); Red Blood Count 4.64 M/uL (4.20-5.40)
[2024-11-24 19:05] LABS: Albumin Globulin Ratio 1.2 (0.9-2); Albumin Level 4.2 gm/dl (3.4-5.0); BUN Creatinine Ratio 34.4 (10-20); Bilirubin,Total 0.6 mg/dl (0.2-1.0); Calcium 10.1 mg/dl (8.6-10.3); Creatinine Clr Calc Pharmacy 101.8 ml/min; Globulin 3.4 gm/dl (2.5-4.0); Potassium 3.8 mmol/L (3.5-5.1); Total Protein 7.6 gm/dl (6.0-8.3)
[2024-11-24] MEDS: DAPTOmycin 500 MG in SYRINGE 0 ML IV ONE (19:41)
--- NOTE | 2024-11-24 19:41 | Emergency Department Note ---
ED Visit Note I was consulted by the Advanced Practice Provider. I approved the management plan and take responsibility for the patient management. This includes the aspects of: -History/Physical -MDM -I independently interpreted the following studies:Studies and results .
--- NOTE | 2024-11-24 19:57 | History & Physical Report ---
Date of Service November 24, 2024 Assessment & Plan (1) Cellulitis of right anterior lower leg: (2) Hypothyroidism: (3) Hypertension: Plan Patient is a 79-year-old female with past medical history of hypothyroidism and hypertension. Patient presented after referral by her PCP due to right lower extremity cellulitis after failing outpatient treatment with Keflex. She is being admitted for IV antibiotics. #RL extremity cellulitis - failed outpatient tx with Keflex. Non septic - No leukocytosis, VSS, procalcitonin negative. No previous cultures on file. - borders marked with surgical pen - follow - wound and blood cultures taken prior to abx - follow - crp pending - continue daptomycin and cefepime - repeat cbc with am labs - wound care consulted - small anterior wound to right adams with clear drainage #hypothyroidism - continue levothyroxine #HTN - continue HCTZ VTE ppx: SCDs, low risk and able to ambulate Dispo: med surg Admission and Anticipated Discharge Date Admission Date: 11/24/24 History of Present Illness Chief Complaint: leg swelling Primary Care Provider: Lian Singh Patient is a 79-year-old female with past medical history of hypothyroidism and hypertension. Patient presented after referral by her PCP due to right lower extremity cellulitis after failing outpatient treatment with Keflex. She is being admitted for IV antibiotics. Bedside. She stated to weeks ago she developed redness and swelling of her right lower extremity, denies any pain. She stated does have some clear drainage, denies any white milky drainage. She does have mild friction, which she stated is always there and occasionally drops open during the summer. She denies any fevers or chills chest pain, shortness of breath, nausea, vomiting, diarrhea. Overall she states she has and feeling well. Lower extremity redness. She denies any past history of frequent infections, no cultures on file. She denies nicotine alcohol use. She does not use any oxygen at baseline. No medications consist of levothyroxine and hydrochlorothiazide, which was recently increased to 50 mg daily. She wishes to be full code. Allergies Allergy/AdvReac Type Severity Reaction Status Date / Time No Known Allergies Allergy Mild Unverified 01/08/18 07:02 Home Medications Medication Instructions Recorded Confirmed Type Wheeled Walker #1 ea 01/24/24 11/24/24 Rx hydrochlorothiazide 50 mg tablet 50 mg PO QAM 11/24/24 11/24/24 History levothyroxine 125 mcg tablet 125 mcg PO DAILYBB 11/24/24 11/24/24 History Past Med/Surg History Problem List (Updated 11/24/24 @ 21:24 by Ayse Clark PA-C) Hypertension Hypothyroidism Cellulitis of right anterior lower leg (Acute) Left knee pain Avascular necrosis of bone of right hip Bilateral lower extremity edema Osteoarthritis History of total left knee replacement Right hip pain Right knee DJD Medical History Bilateral lower extremity edema Osteoarthritis Surgical History History of total left knee replacement Social History Smoking Status: Never smoker Hx Alcohol Use: No Hx Substance Use: No Preferred Language: German Communication Ability: Effective Records Management Specialist Required: No Beliefs That Will Affect Care: None marital status: / Current Living Situation: Alone current occupational status: retired Other Information That Helps Us Care for You: No Feels Safe at Home: Yes Safety Concerns: Feels Safe At This Time Assistive Devices: Cane and Walker Review of Systems 2 Review of Systems: see HPI Physical Exam 2 Physical Exam: The patient is awake, alert and oriented 3, well developed and well nourished, normocephalic and atraumatic, in no acute distress. Non-toxic appearing. HEENT- EOMI, mucous membranes moist. Hearing grossly intact. Heart-normal S1 and S2. No murmurs, rubs or gallops. Lungs-clear bilaterally, no respiratory distress, no accessory muscle use. Abdomen-normal bowel sounds and soft. No ascites noted. Non-tender. Extremities- right lower extremity erythema and edema. Mild left LE erythema posteriorly in knee fold. Rheumatologic-normal range of motion. Psychiatric-normal affect. Results & Data Results & Data Vital Signs (Past 12 Hours) Vital Signs Temp Pulse Resp BP Pulse Ox 11/24/24 17:23 36.6 C 71 18 180/70 H 93 Laboratory Results reviewed cbc, cmp, procal Medications Administered ed - cefepime 2g IV and daptomycin 500mg IV ECG Additional Comments: ordered Code Status & VTE Plan Code Status full code VTE Prophylaxis Plan VTE Prophylaxis will be ordered: Yes Supervising Physician Co-Signing Physician Notes I personally saw and examined the patient. I independently reviewed the labs, problem list, medication list, past medical history and family history. I verified all mattson points and agree with Ayse Clark PA-C with the following exceptions and/or additions: 79 year old female presents to the ER with right lower extremity erythema and swelling not improving on outpatient cephalexin. No fever or chills. O/E Right lower extremity erythema and swelling, markedly different from left side with venous ulcer anteriorly without pus (see pictures above) A/P Right lower extremity cellulitis - failed cephalexin outpatient, switch to dapto/cefepime inpatient, elevate extremity as much as possible PG Care Time/CCT Total # of Minutes Spent Total Time Spent with Patient: Total time spent is greater than 50% in coordination of care (as documented) at patient's floor/unit and/or counseling patient: Coding Level of Care Code 97357 INT INP/OBS CARE MIN Diagnoses Cellulitis of right anterior lower leg L03.115 Hypothyroidism E03.9 Hypertension I10
[2024-11-24 21:32] LABS: C Reactive Protein 0.5 mg/dl (0-0.5)
[2024-11-24] MEDS ORDERED: DOCUSATE SODIUM 100 MG CAP PO PRN (22:04)
[2024-11-24] MEDS ORDERED: ACETAMINOPHEN 325 MG TAB PO PRN (22:04)
[2024-11-24] MEDS ORDERED: MELATONIN 3 MG TAB PO PRN (22:04)
[2024-11-24] MEDS ORDERED: ONDANSETRON INJ 2 MG/ML 2 ML VIAL IV PRN (22:04)
[2024-11-25] MEDS: CEFEPIME 2000MG 2,000 MG/20 ML SYR IV SCH (05:39)
[2024-11-25] MEDS: LEVOTHYROXINE SODIUM 125 MCG TABLET PO SCH (05:39)
--- NOTE | 2024-11-25 06:44 | Electrocardiogram Report ---
Test Reason : Blood Pressure : */* mmHG Vent. Rate : 68 BPM Atrial Rate : 68 BPM P-R Int : 162 ms QRS Dur : 140 ms QT Int : 442 ms P-R-T Axes : 51 -35 84 degrees QTcB Int : 469 ms Normal sinus rhythm Left axis deviation Left bundle branch block Abnormal ECG When compared with ECG of 24-Dec-2017 14:15, QRS axis Shifted left Confirmed by Collins Biswas ([id number]) on 11/25/2024 6:43:45 AM Referred By: REFERRED SELF Confirmed By: Collins Biswas
[2024-11-25 07:29] LABS: Basophils # (auto) 0.02 K/uL (0.00-0.20); Basophils % (auto) 0.4 %; Eosinophils # (auto) 0.12 K/uL (0.00-0.50); Eosinophils % (auto) 2.1 %; Hematocrit (blood only) 40.7 % (37.0-47.0); Hemoglobin 12.6 g/dl (12.0-16.0); Immature Granulocytes # (auto) 0.01 K/uL (0.01-0.20); Immature Granulocytes % (auto) 0.2 %; Lymphocytes # (auto) 0.95 K/uL (1.20-3.40); Mean Corpuscular Hemoglobin 29.7 pg (25.0-34.0); Mean Platelet Volume 10.1 fL (9.4-12.4); Monocytes # (auto) 0.63 K/uL (0.11-0.59); Monocytes % (auto) 11.3 %; Neutrophils # (auto) 3.86 K/uL (1.40-6.50); Platelet Count 226 K/uL (130-400); RDW Coefficient of Variation 13.5 % (11.5-14.5); RDW Standard Deviation 47.8 fL (36.4-46.3); Red Blood Count 4.24 M/uL (4.20-5.40); White Blood Count 5.59 K/ul (4.8-10.8)
[2024-11-25] MEDS: hydroCHLOROthiazide 25 MG TAB PO SCH (08:20)
[2024-11-25] MEDS: PNEUMOCOCCAL VACCINE (PCV20) 20-VAL CONJ-DIP CRM/PF 0.5 ML SYR IM ONE (08:23)
--- NOTE | 2024-11-25 11:38 | Hospitalist Progress Note ---
Date of Service November 25, 2024 Assessment & Plan (1) Cellulitis of right anterior lower leg: (2) Hypothyroidism: (3) Hypertension: Plan Patient is a 79-year-old female with past medical history of hypothyroidism and hypertension. Patient presented after referral by her PCP due to right lower extremity cellulitis after failing outpatient treatment with Keflex. She is being admitted for IV antibiotics. #RL extremity cellulitis - failed outpatient tx with Keflex. Non septic - No leukocytosis, VSS, procalcitonin negative, crp negative. No previous cultures on file. Borders marked with surgical pen Wound culture: no organsim on gram stain Blood cultures: pending Continue daptomycin and cefepime - can transition to PO at discharge Wound care consulted - small anterior wound to right adams with clear drainage #hypothyroidism - continue levothyroxine #HTN - continue HCTZ VTE ppx: SCDs, low risk and able to ambulate Dispo: continued inpatient stay, possible discharge tomorrow if clinical improvement Admission and Anticipated Discharge Date Admission Date: November 24, 2024 Subjective Patient seen sitting up in the chair. Feeling well, maintained appetite. Denies pain but also did not have any pain when she came in. Ambulates with cane. Denies fevers Review of Systems Review of Systems: All systems reviewed & are unremarkable except as noted in Subjective Physical Exam Physical Exam: General: NAD, VS as above, sitting up in the chair, appears well Resp: normal respiratory effort, lungs clear to auscultation CV: RRR, no murmur, Abd: normal bowel sounds, non tender, soft Extremities: Moves all extremities, no edema Neuro: A&O x3, Skin: cellulitis to right leg slightly improved from picture in ER provier note, still warm to touch and erythematous. Does not exceed the demarcated lines. Results & Data Results & Data Vital Signs (Past 12 Hours) Vital Signs Temp Pulse Resp BP Pulse Ox O2 Del Method 11/25/24 07:43 97.3 F L 62 18 134/60 91 Room Air Laboratory Results cbc reviewed PG Care Time/CCT Total # of Minutes Spent Total Time Spent with Patient: Total time spent is greater than 50% in coordination of care (as documented) at patient's floor/unit and/or counseling patient: Coding Level of Care Code 19197 SUB INP/OBS CARE 2/35MIN Diagnoses Cellulitis of right anterior lower leg L03.115 Hypothyroidism E03.9 Hypertension I10
[2024-11-25] MEDS: DAPTOmycin 500 MG in SYRINGE 0 ML IV SCH (19:18)
[2024-11-26 07:40] VITALS: BP 134/81; PULSE 64; RESP 16; TEMP 97.9; O2SAT 92
--- NOTE | 2024-11-26 10:54 | Discharge Summary ---
Discharge Summary Date of Service November 26, 2024 Principal Dx & Hospital Course #1 = Principal Diagnosis (1) Cellulitis of right anterior lower leg: (2) Hypothyroidism: (3) Hypertension: Plan #RL extremity cellulitis Patient is a 79-year-old female with past medical history of hypothyroidism and hypertension. Patient presented after referral by her PCP due to right lower extremity cellulitis after failing outpatient treatment with Keflex, completed the whole course. She was admitted for IV antibiotics, recieved cefepime and dapto. Afebrile, no leukocytosis and no pain to wound. Wound culture with no organism on gram stain. Blood cultures no growth at 24 hours. Stable for discharge with 10 day course of Amoxicillin and doxycyline. Return precautions given #hypothyroidism - continue levothyroxine #HTN - continue HCTZ Dispo: discharge to home today Notes For Next Care Provider Medication Changes From Visit course of doxycyline and amoxicillin BID Admission HPI Per Admitting Provider Patient is a 79-year-old female with past medical history of hypothyroidism and hypertension. Patient presented after referral by her PCP due to right lower extremity cellulitis after failing outpatient treatment with Keflex. She is being admitted for IV antibiotics. Bedside. She stated to weeks ago she developed redness and swelling of her right lower extremity, denies any pain. She stated does have some clear drainage, denies any white milky drainage. She does have mild friction, which she stated is always there and occasionally drops open during the summer. She denies any fevers or chills chest pain, shortness of breath, nausea, vomiting, diarrhea. Overall she states she has and feeling well. Lower extremity redness. She denies any past history of frequent infections, no cultures on file. She denies nicotine alcohol use. She does not use any oxygen at baseline. No medications consist of levothyroxine and hydrochlorothiazide, which was recently increased to 50 mg daily. She wishes to be full code. Discharge Exam General: NAD, VS as above Resp: normal respiratory effort, lungs clear to auscultation CV: RRR, no murmur, Extremities: Moves all extremities, no edema Neuro: A&O x3, Skin: intact, right leg cellulitis does not exceed the demarcated line, not warm to touch, erythematous but blanches, non painful. Discharge Plan Discharge Items Patient Disposition: Home - Self-Care Reason For Visit: CELLULITIS, FAILED OUT PT TX Discharge Diagnosis: Cellulitis Condition on Discharge: Good Activity: Resume your previous activity Bathing: No limitations Driving/Machine Use: No limitations Weightbearing: Full weightbearing Non-emergency contact: Primary Care Provider Call non-emergency contact if: you have any medication questions, your symptoms worsen, your temperature is above 101, your wound has increased redness, your wound has increased drainage and your wound pain has increased Follow-up/Referrals: Lian Singh CRNP [Primary Care Provider] - (follow up within one week ) Diet: Regular Addtl Attending Provider Instructions: Ms. Weldon, Senthil were hospitalized after having worsening cellulitis despite a course of outpatient antibiotics. You were treated with IV antibiotics and will be discharged with two antibiotics - Amoxicillin and Doxycycline. You will be taking both of these twice a day - first dose will be PM of 11/26. Continue to monitor the redness of your leg - if you it starting to exceed the line, develop abcesses (bubbles or pockets or pus) or you start having fevers you need to return to the ER. No changes to your home medications. You have blood cultures pending at the time of discharge, they are negative at 24 hours but take 5 days to get final results. If they turn positive you will be notified, you can also check in with your PCP or the [facility] portal. However, given your symptoms I do not expect they will be positive. Please follow up with your PCP within one week. Take Care! Pending Studies at Discharge: Yes (blood cultures, wound culture ) Stand-Alone Forms: My [employer], Smoking Cessation Medications and DC Order Prescriptions: New doxycycline hyclate 100 mg capsule 100 mg PO BID 10 Days Qty: 20 0RF amoxicillin 500 mg tablet 500 mg PO BID 10 Days Qty: 20 0RF Continued (DME) Wheeled Walker Misc See Rx Instructions .MEDSUPPLY Qty: 1 0RF Rx Instructions: As directed hydrochlorothiazide 50 mg tablet 50 mg PO QAM levothyroxine 125 mcg tablet 125 mcg PO DAILYBB Discharge Orders: Discharge Order (Routine); Ordered 11/26/24 Ordered By: Shweta Fulton/Other Patient Handouts: Cellulitis Dc Admission Data Admit Date/Time: 11/24/24 20:23 Attending Provider: Enrrique Campos Admit Provider: Ezekiel Sauer Primary Care Provider: Lian Singh Other Providers: Ezekiel Sauer Hospital Stay Data Consultations 11/24/24 19:24 ED Decision to Admit Stat Pending Results Patient Have Any Pending Studies at Discharge: Yes (blood cultures, wound culture ) Discharge Instructions Given to Patient (Per Discharging Provider) Ms. Weldon, Senthil were hospitalized after having worsening cellulitis despite a course of outpatient antibiotics. You were treated with IV antibiotics and will be discharged with two antibiotics - Amoxicillin and Doxycycline. You will be taking both of these twice a day - first dose will be PM of 11/26. Continue to monitor the redness of your leg - if you it starting to exceed the line, develop abcesses (bubbles or pockets or pus) or you start having fevers you need to return to the ER. No changes to your home medications. You have blood cultures pending at the time of discharge, they are negative at 24 hours but take 5 days to get final results. If they turn positive you will be notified, you can also check in with your PCP or the [facility] portal. However, given your symptoms I do not expect they will be positive. Please follow up with your PCP within one week. Take Care! Total Time Total Time Spent Total Time Spent (In Minutes): Time spent day of discharge 35 minutes including direct patient care, medication reconciliation, documentation, review of labs and images, and coordination of care. Coding Level of Care Code 38324 INP/OBS DISCH >30 MIN Diagnoses Cellulitis of right anterior lower leg L03.115 Hypothyroidism E03.9 Hypertension I10
== END 2024-11-26 15:15 | disposition home or self-care (01) | DRG 603 ==
LOC: ED 17:23 → SUATTDRO 20:23 → 3N 20:23 → INTOOBSV 20:23 → 3N 21:46